=== PATIENT | male | born 1980 | race Caucasian/White ===

== ENCOUNTER 2020-03-08 08:08 | Day surgery (SDC) | payer BC ==
[2020-03-08] MEDS ORDERED: Propofol 200 MG/20 ML SDV IV ONE (08:09)
[2020-03-08] MEDS ORDERED: Midazolam 1 MG/ML 2 ML SDV IV ONE (08:09)
[2020-03-08] MEDS ORDERED: Sodium Chloride 0.9% 10 ML Syringe FLUSH PRN (08:15)
[2020-03-08] MEDS ORDERED: Lactated Ringers 1,000 ML IV SCH (08:15)
[2020-03-08] MEDS ORDERED: Simethicone Drops 40 MG/0.6 ML 30 ML Bottle ONE (11:20)
--- NOTE | 2020-03-08 11:35 | PCM.OPNOTE ---
- General Post-Op/Procedure Note Date of Surgery/Procedure: 03/08/20 Operative Procedure(s): c scope Findings: internal hemorrhoids Pre Op Diagnosis: bleeding per rectum Post-Op Diagnosis: internal hemorrhoids Anesthesia Technique: MAC Primary Surgeon: Agustin Cortes Anesthesia Provider: Jayna Finley Pathology: none Complications: None Condition: Good Free Text/Narrative:: see dictation
[2020-03-08 12:01] VITALS: BP 118/76; PULSE 78
--- NOTE | 2020-03-08 17:33 | OR ---
DATE OF OPERATION: 03/08/2020 SURGEON: Agustin Cortes MD PROCEDURE PERFORMED: Colonoscopy. PREOPERATIVE DIAGNOSIS: Bright red blood per rectum. POSTOPERATIVE DIAGNOSIS: Internal hemorrhoids. INDICATIONS FOR PROCEDURE: This is a 39-year-old white male who is referred with the above-mentioned complaint. He was offered and accepted a colonoscopy as part of his workup. DESCRIPTION OF OPERATION: After an excellent IV sedation was administered, digital rectal exam was performed. No marked abnormality was noted. The flexible colonoscope was inserted and advanced without difficulty to the patient's cecum. The prep was excellent. The following findings were noted: Ascending colon, unremarkable. Transverse colon, unremarkable. Descending colon, unremarkable. Sigmoid and rectum, unremarkable. On retroflexing the scope, there was evidence of what appeared to be some grade 2 internal hemorrhoids, which was the presumed cause of his bleeding. The patient tolerated the procedure well, was taken to recovery. RECOMMENDATION: We will have him follow up on a p.r.n. basis for banding. /[id number] ERIC/FELIPE
== END 2020-03-08 12:11 | disposition home or self-care (01) ==
LOC: FB.SDS 08:08
PROVIDERS: ATTEND Surgery
DX: K64.8 Other hemorrhoids (principal); K62.5 Hemorrhage of anus and rectum; Z79.82 Long term (current) use of aspirin; G47.33 Obstructive sleep apnea (adult) (pediatric)
CPT/HCPCS: 00811; 45378; A9270; J2250; J2704; J7120